=== PATIENT | female | born 1945 | race Caucasian/White ===

== ENCOUNTER 2024-08-07 16:59 | Emergency (ER) | payer MEDICARE ==
[2024-08-15] MEDS ORDERED: PANT40TA6 PO (10:43)
[2024-08-15] MEDS ORDERED: ASPI-1007 PO (10:43)
[2024-08-15] MEDS ORDERED: MONT-38 PO (10:43)
[2024-08-15] MEDS ORDERED: METO25TA4 PO (10:43)
[2024-08-15] MEDS ORDERED: ATOR20TA PO (10:43)
[2024-08-15] MEDS ORDERED: LOSA-400 PO (10:43)
[2024-08-15] MEDS ORDERED: [UNRECOGNIZED DRUG - CODE] PO (10:43)
[2024-08-15] MEDS ORDERED: AMLO5TAB4 PO (10:43)
[2024-08-15] MEDS ORDERED: IPRA3AMP25 IH (10:43)
[2024-08-16] MEDS ORDERED: NICO-449 TD (11:33)
== END 2024-08-07 20:03 | disposition admitted as inpatient to this hospital (09) ==
LOC: ER 16:59
DX: I50.9 Heart failure, unspecified (principal); J96.01 Acute respiratory failure with hypoxia; Z20.822 Contact with and (suspected) exposure to COVID-19
CPT/HCPCS: 99285; 96374; 71045; 87426; 80053; 85025; 36415; 84484; 87040 ×2; 83605; 87804 ×2; 83880; 82550; 85610; 85730; 93005; 82803; 36600; 94640; J2919; J1100; J2930